=== PATIENT | male | born 1995 | race Two or more races ===

== ENCOUNTER → 2019-07-14 | Outpatient (CLI) | payer SELFPAY ==
--- NOTE | 2019-07-14 13:11 | KCIC ---
AP and Lateral Views of the Chest 07/14/2019 12:00 AM Indication: Chronic cough, asthma Comparison: None Findings: There is no focal consolidation or infiltrate identified. The cardiomediastinal silhouette is within normal limits. There is no evidence of pneumothorax or pleural effusion. No acute osseous abnormalities are identified. Impression: No evidence of acute cardiopulmonary process. Electronically signed by: Jimbo Grande MD (07/14/2019 1:08 PM) [id number]
== END ==
LOC: KCIC 12:46
PROVIDERS: ATTEND Specialist
DX: R05 Cough (principal); J45.909 Unspecified asthma, uncomplicated
CPT/HCPCS: 71046